=== PATIENT | male | born 1950 | race Caucasian/White ===

== ENCOUNTER 2018-05-02 08:53 | Outpatient (CLI) | payer OTHER ==
--- NOTE | 2018-05-02 11:31 | MRI Report ---
Reason: TIA,LOW BACK PAIN Procedure Date: 05/02/2018 Accession Number: [id number] / [id number] Procedure: MRI - Brain W/O CPT Code: FULL RESULT: EXAM: MRI BRAIN WITHOUT CONTRAST EXAM DATE: 05/02/2018 10:13 AM. CLINICAL HISTORY: TIA. Left facial numbness. COMPARISON: None. TECHNIQUE: Multiplanar, multisequence T1-weighted and fluid-sensitive MR sequences of the brain were performed. Sequences optimized for routine evaluation. Other: None. IV Contrast: None. FINDINGS: Brain Volume: Minimal to mild generalized cerebral volume loss. Mild to moderate cerebellar volume loss especially of the vermis. Parenchyma/Dura: No mass, acute infarct or hemorrhage. There are a few scattered small punctate foci of nonspecific white matter T2 hyperintensity in the cerebral hemispheres, nonspecific findings but consistent with aging and minimal to mild chronic microangiopathy. No mass-effect, midline shift or abnormal subdural fluid collection. Ventricles/Cisterns: No hydrocephalus. No abnormal extra-axial fluid collection or hemorrhage. Orbits: Symmetric and unremarkable. Sella Turcica: No space-occupying mass. Unremarkable appearance of the optic chiasm. IAC: Symmetric and unremarkable. Vasculature: The major arterial skull base flow voids are present. Sinuses: Mild to moderate pansinusitis. Retained dependent fluid in the sphenoid sinus. Bones: No focal pathologic appearing marrow signal changes. Other: None. IMPRESSION: 1. No acute intracranial abnormality. 2. Allowing for noncontrast imaging technique, no evidence for intracranial space-occupying lesion. 3. Minimal white matter T2 hyperintense signal changes likely from aging and minimal microangiopathy. 4. Mild to moderate sinusitis. RADIA
--- NOTE | 2018-05-02 14:32 | MRI Report ---
Reason: TIA,LOW BACK PAIN Procedure Date: 05/02/2018 Accession Number: [id number] / [id number] Procedure: MRI - Lumbar Spine W/O CPT Code: FULL RESULT: EXAM: MRI LUMBAR SPINE WITHOUT CONTRAST EXAM DATE: 05/02/2018 10:21 AM. CLINICAL HISTORY: TIA, low back pain. Pain radiating into both legs. COMPARISON: Lumbar spine 2 view 06/27/2017 10:27 AM. TECHNIQUE: Multiplanar, multisequence T1-weighted and fluid-sensitive sequences of the lumbar spine from T12 to S1 without contrast. Other: None. FINDINGS: Spinal Canal: The conus terminates at T12. The conus medullaris and cauda equina are unremarkable. Alignment: Mild, 3 mm, spondylotic spondylolisthesis is seen at L4-L5. Bone Marrow: A transitional vertebrae is seen at the lumbosacral junction. This is assumed to represent partial sacralization of L5, greater on the right. A hypoplastic L5-S1 disk level is present. Bone marrow edema is seen centered at the bilateral L4-L5 facet joints, greater on the right. This extends into adjacent pedicles. Fluid is seen in the adjacent facet joints, greater on the right. Overlying posterolateral paraspinous edema is seen. No fluid collection is seen. Disk Levels/Facets: T12-L1: Unremarkable. L1-L2: Unremarkable. Patchy T2 hypointense disk signal. Minimal circumferential disk bulge. L2-L3: Unremarkable. Patchy T2 hypointense disk signal. Minimal lateral and ventral disk bulge. L3-L4: Unremarkable. Minimal circumferential disk bulge. Effacement of the ventral thecal sac. No stenosis. L4-L5: Hypertrophic degenerative facet change is seen greater on the right. Facet joint fluid is seen. Mild spondylolisthesis. Mild circumferential disk bulge. Effacement of the thecal sac is noted without canal stenosis. Mild effacement of the descending L5 nerve roots is seen with mild proximal lateral recess stenosis. Mild effacement of exiting right L4 nerve root is seen with mild foraminal stenosis. L5-S1: Partial sacralization of L5 is seen. No significant spondylosis. No stenosis. Musculature: Normal. No edema or fatty atrophy. Other: The partially visualized retroperitoneum is unremarkable. IMPRESSION: 1. Transitional vertebrae at the lumbosacral junction. This is assumed to represent partial sacralization of L5, greater on the right. 2. Bone marrow and paraspinous edema centered at L4-L5 facet joints, greater on the right. Findings are likely degenerative in nature. Infectious etiology is considered less likely. No adjacent fluid collection is seen. 3. L4-L5: Spondylosis. Degenerative facet change and mild spondylolisthesis. Bilateral mild lateral recess stenosis. Right mild foraminal stenosis. Comment: The following findings are so common in adults without low back pain that while we report their presence, they must be interpreted with caution and in the context of the clinical situation. (Reference Lulyk et al, Spine 2001) Prevalence of findings in patients without low back pain: Disk degeneration (any evidence): 92% Disk desiccation/T2 signal loss: 83% Disk height loss: 56% Disk bulge: 64% Disk protrusion: 32% Annular tear/high intensity zone: 38% RADIA
--- NOTE | 2018-05-02 15:03 | Ultrasound Report ---
Reason: TIA,LOW BACK PAIN Procedure Date: 05/02/2018 Accession Number: [id number] / [id number] Procedure: US - Carotid Doppler Complete CPT Code: FULL RESULT: EXAM: BILATERAL CAROTID AND VERTEBRAL ARTERY DUPLEX DOPPLER ULTRASOUND: EXAM DATE: 05/02/2018 10:21 AM CLINICAL HISTORY: TIA, low back pain. COMPARISON: None. TECHNIQUE: Grayscale imaging, color Doppler, and duplex spectral Doppler were used to evaluate the carotid and vertebral arteries bilaterally. Static images were obtained. FINDINGS: No significant plaque is identified in the right or left common or internal carotid arteries. Normal antegrade flow is present in bilateral vertebral arteries. VELOCITIES (cm/sec): Right CCA mid: PSV 117 cm/sec CCA dist: PSV 80 cm/sec ICA prox: PSV 80 cm/sec, EDV 23 cm/sec ICA mid: PSV 79 cm/sec, EDV 33 cm/sec ICA dist: PSV 56 cm/sec, EDV 25 cm/sec ECA: PSV 74 cm/sec Vert: PSV 32 cm/sec ICA/CCA: 0.68 Left CCA mid: PSV 94 cm/sec CCA dist: PSV 83 cm/sec ICA prox: PSV 88 cm/sec, EDV 29 cm/sec ICA mid: PSV 67 cm/sec, EDV 23 cm/sec ICA dist: PSV 70 cm/sec, EDV 31 cm/sec ECA: PSV 105 cm/sec Vert: PSV 51 cm/sec ICA/CCA: 0.94 ICA diameter stenosis: Right: <50% by velocity and <70% by NASCET criteria. Left: <50% by velocity and <70% by NASCET criteria. IMPRESSION: 1. No significant bilateral carotid artery plaquing. 2. In the right carotid artery there are no elevated carotid artery velocities to suggest hemodynamically significant stenosis. 3. In the left carotid artery there are no elevated carotid artery velocities to suggest hemodynamically significant stenosis. 4. Normal antegrade flow is present in bilateral vertebral arteries. General Recommendations: Stenosis =50% ICA - Follow-up ultrasound 6-12 months Stenosis <50% ICA - High Risk Patient with plaque - Follow-up ultrasound 1-2 years Normal Study but High Risk Patient - Follow-up ultrasound 3-5 years Management recommendations and diagnostic criteria are based on current IAC endorsed standards in Carotid Artery Stenosis: Grayscale and Doppler Ultrasound Diagnosis. Validated velocity measurements with angiographic measurements and velocity criteria are extrapolated from diameter data as defined by the Society of Radiologists in Ultrasound Consensus Conference Radiology 2003; 229;340-346. RADIA
== END 2018-05-02 08:54 | disposition home or self-care (01) ==
LOC: DI 08:53
PROVIDERS: ATTEND Family Medicine
DX: G45.9 Transient cerebral ischemic attack, unspecified (principal); J32.4 Chronic pansinusitis; M47.9 Spondylosis, unspecified; M43.16 Spondylolisthesis, lumbar region; M48.061 Spinal stenosis, lumbar region without neurogenic claudication
CPT/HCPCS: 70551; 72148; 93880

== ENCOUNTER 2020-10-09 09:24 | Outpatient (CLI) | payer OTHER ==
[2020-10-09 14:39] LABS: BASOPHILS # (AUTO) 0.1 10^3/uL (0.0-0.1); BASOPHILS % (AUTO) 1.2 %; EOSINOPHILS # (AUTO) 0.3 10^3/uL (0.0-0.7); EOSINOPHILS % (AUTO) 4.3 %; HCT - HEMATOCRIT 46.2 % (42.0-52.0); HGB - HEMOGLOBIN 15.1 g/dL (14.0-18.0); LYMPHOCYTES # (AUTO) 1.2 10^3/uL (1.5-3.5); LYMPHOCYTES % (AUTO) 20.6 %; MEAN CORPUSCULAR HEMOGLOBIN 30.1 pg (27.0-31.0); MEAN CORPUSCULAR HGB CONC 32.7 g/dL (32.0-36.0); MEAN PLATELET VOLUME 11.7 fL (7.4-11.4); MONOCYTES # (AUTO) 0.6 10^3/uL (0.0-1.0); NEUTROPHILS # (AUTO) 3.8 10^3/uL (1.5-6.6); NEUTROPHILS % (AUTO) 63.7 %; PLT - PLATELET COUNT 177 10^3/uL (130-450); RED BLOOD COUNT 5.02 10^6/uL (4.70-6.10); RED CELL DISTRIBUTION WIDTH 12.5 % (12.0-15.0); WHITE BLOOD COUNT 5.9 x10^3/uL (4.8-10.8)
[2020-10-09 15:11] LABS: ALBUMIN 4.6 g/dL (3.2-5.5); ALBUMIN/GLOBULIN RATIO 1.7 (1.0-2.2); ALKALINE PHOSPHATASE 70 IU/L (42-121); ALT ALANINE AMINOTRANSFERASE 17 IU/L (10-60); AST ASPARTATE AMINOTRANSFERASE 23 IU/L (10-42); BUN - BLOOD UREA NITROGEN 28 mg/dL (6-20); CARBON DIOXIDE - CO2 27 mmol/L (21-32); CHLORIDE 100 mmol/L (101-111); CHOL/HDL RATIO 3.2 (<5.0); CHOLESTEROL 213 mg/dL; CREATININE 1.1 mg/dL (0.6-1.2); GFR - MDRD 67 (>89); GLUCOSE 119 mg/dL (70-100); HDL CHOLESTEROL 66 mg/dL; LDL CHOLESTEROL,CALCULATED 129 mg/dL; POTASSIUM 4.5 mmol/L (3.5-5.0); SODIUM 135 mmol/L (135-145); TOTAL PROTEIN 7.3 g/dL (6.7-8.2); TRIGLYCERIDES 88 mg/dL; VLDL CHOLESTEROL 18 mg/dL
== END 2020-10-09 09:25 | disposition home or self-care (01) ==
LOC: LAB.S 09:24
PROVIDERS: ATTEND Family Medicine
DX: G45.9 Transient cerebral ischemic attack, unspecified (principal); N40.1 Benign prostatic hyperplasia with lower urinary tract symptoms; N13.8 Other obstructive and reflux uropathy
CPT/HCPCS: 36415; 80053; 80061; 83721; 84153; 85025

== ENCOUNTER 2021-01-21 08:00 | Outpatient (CLI) | payer OTHER ==
--- NOTE | 2021-01-21 12:26 | XRAY Report ---
PROCEDURE: Chest 2 View X-Ray INDICATIONS: STRAIN OF FRONT WALL OF THORAX TECHNIQUE: 2 view(s) of the chest. COMPARISON: None. FINDINGS: Surgical changes and devices: None. Lungs and pleura: Hyperexpansion of the lungs. No consolidation, pneumothorax, or substantial pleural effusion. Flattening of the diaphragms. Mediastinum: Mediastinal contours are normal. Heart size is normal. Bones and chest wall: No suspicious bony abnormalities. Soft tissues appear unremarkable. IMPRESSION: No acute cardiopulmonary abnormality. Reviewed by: Phil Carlson MD on 01/21/2021 12:25 PM PDT Approved by: Phil Carlson MD on 01/21/2021 12:25 PM PDT Station ID: [id number]
== END 2021-01-21 23:59 | disposition home or self-care (01) ==
LOC: DI.S 08:00
PROVIDERS: ATTEND Emergency Medicine
DX: S29.011A Strain of muscle and tendon of front wall of thorax, initial encounter (principal)

== ENCOUNTER 2021-02-20 07:25 | Day surgery (SDC) | payer OTHER ==
[~2021-02-20 07:25] MED LIST: PROPOFOL 500 MG/50 ML 500 MG/50 ML VIAL ONE
[2021-02-20] MEDS ORDERED: LACTATED RINGERS 1,000 ML IV ONE ×2 (07:54→10:45)
--- NOTE | 2021-02-20 08:20 | ANESTHESIA ---
Pre-Anesthesia VS, & Labs - Diagnosis hx of polyp - Procedure colonoscopy Vital Signs: Temp Pulse Resp BP Pulse Ox 36.5 C 76 20 117/77 97 02/20/21 07:42 02/20/21 07:42 02/20/21 07:42 02/20/21 07:42 02/20/21 07:42 Height: 6 ft Weight (kg): 79.1 kg Body Mass Index: 23.6 BMI Classification: Healthy weight - NPO >8 hours Home Medications and Allergies Home Medications: Ambulatory Orders Tamsulosin HCl [Flomax] 0.4 mg PO DAILY 02/19/21 Ibuprofen/Diphenhydramine Cit [Eql Ibuprofen Pm Caplet] 2 each PO QPM PRN 10/22/15 Tamsulosin HCl [Flomax] 0.4 mg PO DAILY 02/19/21 Allergies/Adverse Reactions: Allergies Allergy/AdvReac Type Severity Reaction Status Date / Time varenicline [From Chantix] AdvReac Unknown Verified 02/20/21 07:51 Anes History & Medical History - Anesthetic History Anesthesia Complications: reports: No previous complications Family history of Anesthesia Complications: Denies Family history of Malignant Hyperthermia: Denies - Medical History Cardiovascular: reports: None Pulmonary: reports: None, Shortness of breath Gastrointestinal: reports: None Urinary: reports: None Musculoskeletal: reports: None Endocrine/Autoimmune: reports: None Skin: reports: None Smoking Status: Current every day smoker - Surgical History General: reports: Colonoscopy Exam General: Alert, Oriented x3, Cooperative Dental: WNL Mouth Openin Fingerbreadth Neck Mobility: Normal Mallampati classification: I Thyromental Distance: 4-6 cm Respiratory: Lungs clear Cardiovascular: Regular rate Plan Anesthesia Type: Total IV Consent for Procedure(s) Verified and Reviewed: Yes Code Status: Attempt Resuscitation ASA classification: 2-Mild systemic disease Is this case an emergency?: No
[2021-02-20] MEDS ORDERED: MIDAZOLAM 2 MG/2 ML VIAL ONE (09:10)
--- NOTE | 2021-02-20 10:06 | HISTORY & PHYSICAL EXAMINATION ---
Chief Complaint - Chief Complaint Chief Complaint: history colon polyp History of Present Illness - History Obtained From Records Reviewed: yes History obtained from: pt Exam Limitations: none - History of Present Illness HPI Comment/Other: History of colon polyp. Due for colon cancer/ polyp surveillance. History - Past Medical History Cardiovascular: reports: None Respiratory: reports: None, Shortness of breath Endocrine/Autoimmune: reports: None GI: reports: None : reports: None HEENT: reports: None Psych: reports: None Musculoskeletal: reports: None Derm: reports: None MRSA Hx?: No - Past Surgical History General: reports: Colonoscopy Meds/Allgy - Home Medications Home Medications: Ambulatory Orders Medication Instructions Recorded Confirmed Ibuprofen/Diphenhydramine Cit [Eql 2 each PO QPM PRN 10/22/15 02/20/21 Ibuprofen Pm Caplet] Tamsulosin HCl [Flomax] 0.4 mg PO DAILY 02/19/21 02/20/21 - Allergies Allergies/Adverse Reactions: Allergies Allergy/AdvReac Type Severity Reaction Status Date / Time varenicline [From Chantix] AdvReac Unknown Verified 02/20/21 07:51 Review of Systems - Other Findings Other Findings: 10 pt ros as above otherwise unremarkable Exam - Vital Signs Reviewed Vital Signs: Yes Vital Signs: Vital Signs x48h Temp Pulse Resp BP Pulse Ox 02/20/21 07:42 36.5 C 76 20 117/77 97 - Physical Exam General Appearance: positive: No acute distress, Alert Eyes Bilateral: positive: PERRL, EOMI ENT: positive: No signs of dehydration Neck: positive: No JVD Respiratory: positive: No respiratory distress, Breath sounds nml Cardiovascular: positive: Regular rate & rhythm Abdomen: positive: Non-tender, No distention Neurologic/Psychiatric: positive: Oriented x3 Conclusion/Plan - Problem List (1) History of adenomatous polyp of colon Conclusion/Plan: plan colonoscopy. parq held and consent obtained
[2021-02-20] MEDS ORDERED: LIDOCAINE-MPF 2% 5 ML VIAL ONE (10:14)
[2021-02-20] MEDS ORDERED: IPRATROPIUM/ALBUTEROL 3 ML NEB INH STA (11:12)
--- NOTE | 2021-02-20 11:19 | CONSULTATION NOTE ---
Consultation Report: called to the bedside by GARBAGE MAN. Pt reports feeling SOB. Pt med hx + smoking. Expiratory wheezing noted in ISIS, CTA on R. DuoNeb and portable CXR ordered stat. VSS.
[2021-02-20] MEDS ORDERED: IPRATROPIUM/ALBUTEROL 3 ML NEB INH ONE (11:21)
--- NOTE | 2021-02-20 11:38 | XRAY Report ---
PROCEDURE: Chest 1 View X-Ray INDICATIONS: RHONCHI TECHNIQUE: One view of the chest was acquired. COMPARISON: 01/21/2021 FINDINGS: Surgical changes and devices: None. Lungs and pleura: No pleural effusions or pneumothorax. Chronic emphysematous changes are seen. No f ocal infiltrate. Mediastinum: Mediastinal contours appear normal. Heart size is normal. Bones and chest wall: No suspicious bony lesions. Overlying soft tissues appear unremarkable. IMPRESSION: No acute cardiopulmonary pathology. COPD. Reviewed by: Dagoberto Keating MD on 02/20/2021 11:36 AM PST Approved by: Dagoberto Keating MD on 02/20/2021 11:36 AM PST Station ID: [id number]
--- NOTE | 2021-02-20 11:53 | CONSULTATION NOTE ---
Consultation Report: CXR reports no new changes. Dr Fontenot notified. Will continue to monitor patient until ready for d/c home. Pt educated regarding s/s prompting return to ED post- discharge.
[2021-02-20 13:10] VITALS: BP 109/60
--- NOTE | 2021-02-20 15:05 | ANESTHESIA POST OP EVALUATION ---
Anesthesia Post Eval - Post Anesthesia Eval Vitals: Last Vital Signs Temp 37.2 C 02/20/21 12:18 Pulse 90 02/20/21 14:02 Resp 18 02/20/21 14:02 BP 109/60 02/20/21 13:08 Pulse Ox 92 02/20/21 14:02 CV Function Including HR & BP: Stable Pain Control: Satisfactory Nausea & Vomiting: Negative Mental Status: Baseline Respiratory Status: Airway Patent Hydration Status: Satisfactory Anesthesia Complications: None
== END 2021-02-20 07:26 | disposition home or self-care (01) ==
LOC: SDS 07:25
PROVIDERS: ATTEND Surgery
PROC: 0DBN8ZZ Excision of Sigmoid Colon, Via Natural or Artificial Opening Endoscopic (ICD-10-PCS; principal; 2021-02-20 09:30)
DX: Z12.11 Encounter for screening for malignant neoplasm of colon (principal); K63.5 Polyp of colon; K57.30 Diverticulosis of large intestine without perforation or abscess without bleeding; F41.9 Anxiety disorder, unspecified; F17.200 Nicotine dependence, unspecified, uncomplicated; R06.02 Shortness of breath; R06.2 Wheezing
CPT/HCPCS: 45385; 71045; J7120

== ENCOUNTER 2021-02-23 08:00 | Outpatient (CLI) | payer OTHER | END 2021-02-23 23:59 | disposition home or self-care (01) | LOC: LAB.S 08:00 | PROVIDERS: ATTEND Emergency Medicine | DX: J44.1 Chronic obstructive pulmonary disease with (acute) exacerbation (principal); Z20.822 Contact with and (suspected) exposure to COVID-19 ==

== ENCOUNTER 2021-03-17 08:00 | Outpatient (CLI) | payer OTHER | END 2021-03-17 23:59 | disposition home or self-care (01) | LOC: LAB.WCP 08:00 | PROVIDERS: ATTEND Nurse Practitioner | DX: J44.1 Chronic obstructive pulmonary disease with (acute) exacerbation (principal); Z20.822 Contact with and (suspected) exposure to COVID-19 ==

== ENCOUNTER 2021-05-16 08:00 | Outpatient (CLI) | payer OTHER ==
--- NOTE | 2021-05-16 18:17 | XRAY Report ---
PROCEDURE: Chest 2 View X-Ray INDICATIONS: SHORTNESS OF BREATH TECHNIQUE: 2 PA views and one lateral view of the chest. COMPARISON: Chest radiographs 02/20/2021. FINDINGS: Surgical changes and devices: None. Lungs and pleura: No pleural effusions or pneumothorax. Lungs are mildly hyperexpanded and clear. Mediastinum: Mediastinal contours are normal. Heart size is normal. Bones and chest wall: No suspicious bony abnormalities. Soft tissues appear unremarkable. IMPRESSION: No acute cardiopulmonary abnormality. Mildly hyperexpanded lungs can be seen in the sett ing of COPD. Reviewed by: Miguel Ángel Garcia MD on 05/16/2021 6:16 PM PST Approved by: Miguel Ángel Garcia MD on 05/16/2021 6:16 PM PST Station ID: [id number]
== END 2021-05-16 23:59 | disposition home or self-care (01) ==
LOC: DI.S 08:00
PROVIDERS: ATTEND Physician Assistant
DX: R06.02 Shortness of breath (principal)